=== PATIENT | female | born 1975 | race Two or more races ===

== ENCOUNTER → 2018-01-20 | Outpatient (CLI) | payer OTHER ==
--- NOTE | 2018-01-21 11:20 | RADIOLOGY IMAGING REPORT ---
FACILITY: [facility] PATIENT NAME: CRESENCIO RHOADES : [id number] MR: [id number] V: [id number] EXAM DATE: ORDERING PHYSICIAN: AMBER ALFARO TECHNOLOGIST: Lucie Ayala PROCEDURE:BILATERAL DIGITAL SCREENING MAMMOGRAM WITH CAD ASSISTED INTERPRETATION & 3D TOMOSYNTHESIS COMPARISON:None this is the patient's baseline mammogram. INDICATIONS:SCREENING FINDINGS: The breasts are extremely dense which lowers the sensitivity of mammography. In the posterior 1/3 of the Right breast posterior to midline on the Right CC view there is a focal asymmetry for which Spot compression view is recommended. This is best appreciated on Tomographic slice 46. DIAGNOSTIC CATEGORY 0--INCOMPLETE: NEED ADDITIONAL IMAGING EVALUATION. RECOMMENDATIONS: ADDITIONAL MAMMOGRAPHIC VIEWS REQUIRED: RIGHT BREAST. IMPRESSION: BIRADS 0: Incomplete. Additional views of the Right breast recommended as described. Dictated by: Charisse Hancock M.D. on 01/20/2018 at 16:35 Transcribed by: ESTHER on 01/21/2018 at 8:20 Approved by: Charisse Hancock M.D. on 01/21/2018 at 11:19 [facility]
== END ==
LOC: MAMO 08:09
PROVIDERS: ATTEND Physician Assistant
DX: Z12.31 Encounter for screening mammogram for malignant neoplasm of breast (principal); R91.8 Other nonspecific abnormal finding of lung field
CPT/HCPCS: 77063; 77067

== ENCOUNTER → 2018-02-26 | Outpatient (CLI) | payer OTHER ==
--- NOTE | 2018-02-26 13:34 | RADIOLOGY IMAGING REPORT ---
[place] [facility] [place] CRESENCIO RHOADES : [id number] MR: [id number] V: [id number] EXAM DATE: ORDERING PHYSICIAN: AMBER ALFARO TECHNOLOGIST: Gildardo Loomis RDMS, RDCS PROCEDURE:US RIGHT BREAST COMPLETE COMPARISON:Prior mammograms 02/26/18, 01/20/18. INDICATIONS:further evaluation FINDINGS: The entire Right breast was imaged revealing no sonographic abnormality. On Today's diagnostic mammogram the focal area of increased density posterior to mid nipple line appeared partially compressible and less prominent. On the Right XCC view this may have represented a Prasanna's ligament. A 6 month follow-up Right mammogram is recommended to document stability of the parenchymal pattern unless clinical findings warrant more immediate attention. DIAGNOSTIC CATEGORY 3--PROBABLY BENIGN FINDING. RECOMMENDATIONS: SIX MONTH FOLLOW-UP DIAGNOSTIC MAMMOGRAM: RIGHT BREAST. IMPRESSION: BIRADS 3: Probably benign finding. A 6 month follow-up Right mammogram is recommended as described above. Dictated by: Charisse Hancock M.D. on 02/26/2018 at 12:34 Transcribed by: ESTHER on 02/26/2018 at 13:28 Approved by: Charisse Hancock M.D. on 02/26/2018 at 13:33 [facility]
--- NOTE | 2018-02-26 13:34 | RADIOLOGY IMAGING REPORT ---
FACILITY: [facility] [place] PATIENT NAME: CRESENCIO RHOADES : [id number] MR: [id number] V: [id number] EXAM DATE: ORDERING PHYSICIAN: AMBER ALFARO TECHNOLOGIST: Lucie Ayala PROCEDURE:RIGHT DIGITAL DIAGNOSTIC MAMMOGRAM WITH CAD ASSISTED INTERPRETATION & 3D TOMOSYNTHESIS COMPARISON:Baseline Mammogram 01/20/18. INDICATIONS:further evaluation FINDINGS: The breasts are extremely dense which lowers the sensitivity of mammography. The patient received a Right MLO view a Right XCC view and Spot compression view in the Right CC projection. The focal area of increased density in the posterior 1/3 of the Right breast posterior to mid nipple line appeared partially compressible. On the Right XCC view there is a sharp angulation of tissue in this location suggesting a possible Prasanna's ligament. Today's Right breast Ultrasound revealed no sonographic abnormality. DIAGNOSTIC CATEGORY 3--PROBABLY BENIGN FINDING. RECOMMENDATIONS: SIX MONTH FOLLOW-UP DIAGNOSTIC MAMMOGRAM: RIGHT BREAST. IMPRESSION: BIRADS 3: Probably benign finding. A 6 month follow-up Right mammogram is recommended to document stability of the parenchymal pattern. Dictated by: Charisse Hancock M.D. on 02/26/2018 at 12:33 Transcribed by: ESTHER on 02/26/2018 at 13:22 Approved by: Charisse Hancock M.D. on 02/26/2018 at 13:33 [facility]
== END ==
LOC: MAMO 01:44
PROVIDERS: ATTEND Physician Assistant
DX: R92.8 Other abnormal and inconclusive findings on diagnostic imaging of breast (principal)
CPT/HCPCS: 77061; 77065